=== PATIENT | male | born 1990 | race Caucasian/White ===

== ENCOUNTER → 2019-04-20 | Outpatient (CLI) | payer OTHER ==
[~2019-04-20] MED LIST: ACETAMINOPHEN325 M1 PO; ALLEGRA ALLERG180 MG PO; BACLOFEN 10MG T10 M1 PO; BACLOFEN20 MG PO; BACTRIM DS TAB1 EACH PO; CALAMINE; CRANBERRY EXTRACT PO; CRANBERRY TABL1 EACH PO; FLOMAX PO; MULTIVITAMINS PO; ONDANSETRON ODT4 MG PO; PANTOPRAZOLE SO40 M1 PO; PENICILLIN VK500 M1 PO; ZOFRAN ODT4 MG PO; ZOVIRAX800 MG PO
== END ==
LOC: MRI 09:58
DX: M41.86 Other forms of scoliosis, lumbar region (principal); M41.84 Other forms of scoliosis, thoracic region; M47.816 Spondylosis without myelopathy or radiculopathy, lumbar region; M48.061 Spinal stenosis, lumbar region without neurogenic claudication; M51.26 Other intervertebral disc displacement, lumbar region; M47.817 Spondylosis without myelopathy or radiculopathy, lumbosacral region; M51.27 Other intervertebral disc displacement, lumbosacral region